=== PATIENT | male | born 1990 | race Hispanic/Latino ===

== ENCOUNTER 2018-03-26 21:16 | Emergency (ER) | payer OTHER ==
[~2018-03-26] VITALS: Ht 170.2 cm; Wt 88.5 kg
== END 2018-03-26 23:00 | disposition home or self-care (01) ==
LOC: FSED 21:16
DX: R10.10 Upper abdominal pain, unspecified (principal); L50.9 Urticaria, unspecified; K59.00 Constipation, unspecified; K29.00 Acute gastritis without bleeding